=== PATIENT | female | born 1990 | race Caucasian/White ===

== ENCOUNTER 2019-02-19 23:08 | Emergency (ER) | payer SELFPAY ==
[2019-02-19 23:19] VITALS: BMI 24.7
[2019-02-19] MEDS ORDERED: SODIUM CHLORIDE 1,000 ML IV STA (23:30)
[2019-02-19] MEDS ORDERED: ONDANSETRON 4 MG/2 ML VIAL IVPUSH ONE (23:31)
[2019-02-19] MEDS ORDERED: ONDANSETRON 4 MG/2 ML VIAL ONE (23:34)
[2019-02-19 23:51] LABS: BASO % 0.2 % (0-2.0); EOS % 0.3 % (0-4.5); HEMATOCRIT 34.5 % (32.4-45.2); HEMOGLOBIN 11.1 GM/dL (10.7-15.3); LYMPH % 18.5 % (8-40); MCH 27.4 pg (25.7-33.7); MCHC 32.2 g/dl (32.0-36.0); MEAN PLT VOLUME 10.2 fl (7.5-11.1); PLATELET COUNT 196 K/MM3 (134-434); RBC 4.06 M/mm3 (3.60-5.2); RDW 12.7 % (11.6-15.6); WHITE BLOOD COUNT 11.2 K/mm3 (4.0-10.0)
[2019-02-19 23:53] LABS: EPI CELLS 13.9 /HPF (0-5/HPF); URINE APPEARANCE CLEAR; URINE BILIRUBIN NEGATIVE (NEGATIVE); URINE COLOR YELLOW; URINE GLUCOSE (UA) NEGATIVE (NEGATIVE); URINE KETONE NEGATIVE (NEGATIVE); URINE LEUK ESTERASE TRACE (NEGATIVE); URINE NITRITE NEGATIVE (NEGATIVE); URINE PROTEIN NEGATIVE (NEGATIVE); URINE RBC 2 /hpf (0-4); URINE WBC 8 /hpf (0-5)
[2019-02-20 00:15] LABS: BILIRUBIN,TOTAL 0.3 mg/dL (0.2-1); BLOOD UREA NITROGEN 12.3 mg/dL (7-18); CALCIUM 8.8 mg/dL (8.5-10.1); CREATININE 0.7 mg/dL (0.55-1.3); POTASSIUM 3.8 mmol/L (3.5-5.1); TOT PROT 7.2 g/dl (6.4-8.2)
[2019-02-20 00:23] LABS: HYALINE CASTS 0 /lpf (0-8)
--- NOTE | 2019-02-20 00:53 | PDOC ---
History of Present Illness - General Chief Complaint: Lightheaded Stated Complaint: ABD PAIN & DIZZINES Time Seen by Provider: 02/19/19 23:17 - History of Present Illness Initial Comments: 02/20/19 00:23 28f with no pmh presents with sharp suprapubic abdominal pain and nausea since 1pm today. The says the pain started around 20min after vigorous intercourse. The pain was so intense that she passed out while being walked to go to the bathroom. Pain got worse when she urinated. No urethral pain or vaginal discharge. Due for her period today. Finishing a course of Metronidazole for BV last week. Past History - Past Medical History Allergies/Adverse Reactions: Allergies Allergy/AdvReac Type Severity Reaction Status Date / Time No Known Allergies Allergy Verified 02/19/19 23:20 Home Medications: Ambulatory Orders levoFLOXacin [Levaquin -] 750 mg PO DAILY #4 tablet 05/24/15 COPD: No - Surgical History Appendectomy: Yes - Reproductive History Cervical CA: No Dysfunctional Uterine Bleeding: No Ectopic : No Endometrial CA: No Polycystic Ovaries: No Tubal Ligation: No - Immunization History Immunization Up to Date: Yes - Suicide/Smoking/Psychosocial Hx Smoking History: Never smoked Hx Alcohol Use: No Drug/Substance Use Hx: No Substance Use Type: None Review of Systems - Review of Systems Able to Perform ROS?: Yes Is the patient limited Romansh proficient: No Constitutional: No: Symptoms Reported HEENTM: No: Symptoms Reported Respiratory: No: Symptoms reported Cardiac (ROS): No: Symptoms Reported ABD/GI: Yes: See HPI : No: Symptoms Reported Musculoskeletal: No: Symptoms Reported Integumentary: No: Symptoms Reported Neurological: No: Symptoms reported All Other Systems: Reviewed and Negative *Physical Exam - Vital Signs Last Vital Signs Temp Pulse Resp BP Pulse Ox 97.5 F L 82 18 101/60 100 02/19/19 23:15 02/19/19 23:15 02/19/19 23:15 02/19/19 23:15 02/19/19 23:15 - Physical Exam General Appearance: Yes: Nourished, Appropriately Dressed. No: Apparent Distress HEENT: positive: EOMI, DOROTHY, Normal ENT Inspection Respiratory/Chest: positive: Lungs Clear, Normal Breath Sounds. negative: Chest Tender, Respiratory Distress Cardiovascular: positive: Regular Rhythm, Regular Rate, S1, S2 Female Pelvic Exam: positive: normal external exam, cervical os closed, normal adnexa. negative: CMT, discharge, adnexal tenderness, vaginal bleeding Gastrointestinal/Abdominal: positive: Normal Bowel Sounds, Tender (suprapubic), Flat, Soft Musculoskeletal: positive: Normal Inspection. negative: CVA Tenderness Extremity: positive: Normal Capillary Refill, Normal Inspection, Normal Range of Motion Integumentary: positive: Normal Color, Dry, Warm Neurologic: positive: Fully Oriented, Alert, Normal Mood/Affect, Normal Response , Motor Strength 10/24 ED Treatment Course - LABORATORY CBC & Chemistry Diagram: 02/19/19 23:40 02/19/19 23:40 - ADDITIONAL ORDERS Additional order review: Laboratory Results 02/19/19 02/19/19 02/19/19 23:40 23:40 23:40 Sodium Potassium Chloride Carbon Dioxide Anion Gap BUN Creatinine Est GFR (CKD-EPI)AfAm Est GFR (CKD-EPI)NonAf Random Glucose Calcium Total Bilirubin AST ALT Alkaline Phosphatase Troponin I < 0.02 Total Protein Albumin Serum , Qual Negative Urine Color Yellow Urine Appearance Clear Urine pH 7.0 Ur Specific [place] 1.016 Urine Protein Negative Urine Glucose (UA) Negative Urine Ketones Negative Urine Blood Negative Urine Nitrite Negative Urine Bilirubin Negative Urine Urobilinogen 1.0 Ur Leukocyte Esterase Trace Urine WBC (Auto) 8 Urine RBC (Auto) 2 Urine Casts (Auto) 11 U Epithel Cells (Auto) 13.9 Urine Bacteria (Auto) 66.0 02/19/19 23:40 Sodium 139 Potassium 3.8 Chloride 106 Carbon Dioxide 27 Anion Gap 6 L BUN 12.3 Creatinine 0.7 Est GFR (CKD-EPI)AfAm 137.62 Est GFR (CKD-EPI)NonAf 118.74 Random Glucose 92 Calcium 8.8 Total Bilirubin 0.3 AST 11 L ALT 13 Alkaline Phosphatase 43 L Troponin I Total Protein 7.2 Albumin 4.0 Serum , Qual Urine Color Urine Appearance Urine pH Ur Specific [place] Urine Protein Urine Glucose (UA) Urine Ketones Urine Blood Urine Nitrite Urine Bilirubin Urine Urobilinogen Ur Leukocyte Esterase Urine WBC (Auto) Urine RBC (Auto) Urine Casts (Auto) U Epithel Cells (Auto) Urine Bacteria (Auto) 02/19/19 23:40 RBC 4.06 MCV 85.0 MCHC 32.2 RDW 12.7 MPV 10.2 Neutrophils % 74.0 Lymphocytes % 18.5 Monocytes % 7.0 Eosinophils % 0.3 Basophils % 0.2 - Medications Given in the ED: ED Medications Discontinued Medications Generic Name Dose Route Start Last Admin Trade Name Kathy PRN Reason Stop Dose Admin Ondansetron HCl 4 mg 02/19/19 23:31 02/19/19 23:44 Zofran Injection IVPUSH 02/19/19 23:32 4 mg ONCE ONE Administration Medical Decision Making - Medical Decision Making 02/20/19 01:17 28f with suprapib pain after intercourse, nausea and syncope. Syncope workup, ekg normal. test negative. FAST exam positive for free fluid in the abdomen. Ordering official US and Ct abdomen 02/20/19 01:44 Moderate amount of hemorrhagic ascites with suspected left adnexal region acute extravasation, possibly due to a ruptured cyst. 02/20/19 02:04 Transferring patient to the care of OBGYN Dr. Sánchez at [facility]. *DC/Admit/Observation/Transfer Diagnosis at time of Disposition: Hemorrhagic cyst of left ovary, Hemoperitoneum - Discharge Dispostion Disposition: TRANSFER ACUTE CARE/OTHER HOSP Condition at time of disposition: Guarded Decision to Admit order: No - Referrals - Patient Instructions - Post Discharge Activity - Transfer to Acute Care Facility Receiving Facility: [facility]. Accepting Physician:: Dr. Sánchez
--- NOTE | 2019-02-20 01:50 | PDOC ---
Documentation entered by Antolin Ward SCRIBE, acting as scribe for Julia Alfaro MD. Julia Alfaro MD: This documentation has been prepared by the Sylvia spears Elijah, SCRIBE, under my direction and personally reviewed by me in its entirety. I confirm that the documentation accurately reflects all work, treatment, procedures, and medical decision making performed by me. Attending Attestation - Resident Resident Name: DhruvChance - ED Attending Attestation I have performed the following: I have examined & evaluated the patient, The case was reviewed & discussed with the resident, I agree w/resident's findings & plan - HPI HPI: 02/20/19 01:26 Patient is a 28 year old female with no reported significant past medical history who presents to the ED with acute onset of lower abdominal pain and nausea occurring after having sexual intercourse. Patient reports the pain as sharp, suprapubic in location and beginning x20 min post-coitus. Patient notes that the pain she experienced was so severe that she passed out after going to the restroom and worsened after urinating. denies . LMP about 1 month ago. Denies urethral pain or vaginal discharge. no VB. Allergies: NKA 02/20/19 01:50 - Physicial Exam PE: 02/20/19 01:25 General: Well appearing, awake and alert, NAD. HEENT: NCAT, PERRL, EOMI, clear conjunctiva, anicteric, moist mucous membranes , clear oropharynx, no oral lesions.. Neck: neck supple, FROM Resp: CTAB, normal and even respirations, no respiratory distress CVS: RRR, no murmurs, 2+ peripheral pulses throughout, no peripheral edema Abdomen: firm, lower abdominal suprapubic TTP with firm mass palpated. + guarding. no CVAT. : with resident, normal external genitalia, no lesions, clear vaginal vault, no CMT, no adnexal tenderness. Smooth and pink cervix, closed. Back: nontender, normal inspection and ROM MSK: no edema, ANDRE x4, ROM intact. No clubbing or cyanosis. normal bulk and tone. Neuro: alert, ambulatory Skin: warm and well perfused, cap refill <2 sec, normal color 02/20/19 01:47 02/21/19 09:38 - Critical Care Time Total Critical Care Time: 60 (hemoperitoneum) Critical Care Statement: The care of this patient involved high complexity decision making to prevent further life threatening deterioration of the patient 's condition and/or to evaluate & treat vital organ system(s) failure or risk of failure. - Medical Decision Making 02/20/19 01:48 See HPI for details. Prior notes reviewed, including admissions, discharges and consultations. Vital signs reviewed, wnl. Vital Signs Temp Pulse Resp BP Pulse Ox 97.5 F L 82 18 101/60 100 02/19/19 23:15 02/19/19 23:15 02/19/19 23:15 02/19/19 23:15 02/19/19 23:15 laboratory results and imaging reviewed, basic labs and lytes wnl, neg preg test. UA neg, unremarkable. H/H wnl. TxS pending EKG normal sinus rhythm, no interval abnormalities, narrow QRS, ST and T wave segments and morphology normal. Nonspecific T wave abnormalities ED course - abdomen tender, more in suprapubic region. +guarding and firmness in suprapubic region. bedside FAST exam with large hemoperitoneum measuring 1.5L, seen in all quadrants. no trauma. only rigorous intercourse prior to onset of sx. HD appropriate on rechecks.. IV, TxS, official pelvic sono and CT a/p with pelvic mass vs hemorrhagic cyst, mod hemoperitoneum concern for active bleeding/cyst rupture. not ectopic emergent transfer to [facility] given limited capabilities including IR at this time, primarily for behavioral health consultant surgery, possible IR intervention with active bleeding, serial exams and active extravasation in left adnexa. she is stable for transport and relevant information communicated with accepting facility accepted by Dr Sánchez at [facility]. 02/20/19 01:51 02/20/19 01:52 02/21/19 09:38 02/21/19 09:40 02/21/19 09:40 Procedures - Bedside Ultrasound Bedside Ultrasound: Focused Assessment w/Sonography for Trauma Remarks: 02/20/19 01:46 A coronal plane of the right upper quadrant was obtained and was POSITIVE for anechoic fluid in the right chest, in Crow's pouch, or the right paracolic gutter. suprapubic window was POSITIVE for free fluid posterior and lateral to the bladder. Next, a coronal plane of the left upper quadrant was obtained and was POSITIVE for anechoic fluid in the left chest, the splenorenal space, and the left paracolic gutter. pericardium and pleural space not evaluated. correlating with 1.5L of intra peritoneal free fluid. These images were captured on the internal hard drive for archival and software quality automation engineer purposes. 02/20/19 01:52
[2019-02-20] MEDS ORDERED: morphine CARPU-JECT 4 MG/1 ML DISP.SYRIN IVPUSH ONE (01:57)
[2019-02-20 02:02] LABS: BASO % 0.4 % (0-2.0); EOS % 0.2 % (0-4.5); HEMATOCRIT 31.8 % (32.4-45.2); HEMOGLOBIN 10.4 GM/dL (10.7-15.3); LYMPH % 24.8 % (8-40); MCHC 32.6 g/dl (32.0-36.0); MEAN CELL VOLUME 86.1 fl (80-96); MONO % 7.4 % (3.8-10.2); NEUT % 67.2 % (42.8-82.8); PLATELET COUNT 181 K/MM3 (134-434); WHITE BLOOD COUNT 10.4 K/mm3 (4.0-10.0)
[2019-02-20] MEDS ORDERED: morphine SULFATE 4 MG/ML VIAL ONE (02:12)
[2019-02-20 02:16] LABS: INR 1.12 (0.83-1.09); PROTHROMBIN TIME (PATIENT) 13.2 SEC (9.7-13.0)
[2019-02-20 02:59] VITALS: BP 110/71; PULSE 86; TEMP 98.3
--- NOTE | 2019-02-20 09:37 | EKG ---
Test Reason : Blood Pressure : / mmHG Vent. Rate : 077 BPM Atrial Rate : 077 BPM P-R Int : 120 ms QRS Dur : 082 ms QT Int : 410 ms P-R-T Axes : 068 055 036 degrees QTc Int : 463 ms NORMAL SINUS RHYTHM WITH SINUS ARRHYTHMIA LOW VOLTAGE QRS BORDERLINE ECG NO PREVIOUS ECGS AVAILABLE Confirmed by JANIS PATEL MD ([id number]) on 02/20/2019 9:36:53 AM Referred By: Confirmed By:JANIS PATEL MD
== END 2019-02-20 03:00 | disposition short-term general hospital (02) ==
LOC: JER 23:08
PROC: 3E0337Z Introduction of Electrolytic and Water Balance Substance into Peripheral Vein, Percutaneous Approach (ICD-10-PCS; principal; 2019-02-19)
PROC: 3E033GC Introduction of Other Therapeutic Substance into Peripheral Vein, Percutaneous Approach (ICD-10-PCS; 2019-02-19)
PROC: 3E033NZ Introduction of Analgesics, Hypnotics, Sedatives into Peripheral Vein, Percutaneous Approach (ICD-10-PCS; 2019-02-19)
PROC: BW40ZZZ Ultrasonography of Abdomen (ICD-10-PCS; 2019-02-19)
PROC: B246ZZZ Ultrasonography of Right and Left Heart (ICD-10-PCS; 2019-02-19)
DX: K66.1 Hemoperitoneum (principal); N83.202 Unspecified ovarian cyst, left side
CPT/HCPCS: 36415; 74177-TC; 76604; 76705-TC; 76830-TC; 80053; 81003; 84484; 84703; 85025; 85610; 85730; 86850; 86900; 86901; 87086; 93005; 93010; 93308; 99285-25; J7030